=== PATIENT | female | born 1935 | race Caucasian/White ===

== ENCOUNTER 2018-04-03 20:08 | Observation (INO) ==
[2018-04-03] MEDS ORDERED: ONDANSETRON 4 MG/2 ML VIAL IV STA (21:10)
[2018-04-03] MEDS ORDERED: ASPIRIN 325 MG TABLET PO STA (21:10)
[2018-04-03] MEDS ORDERED: NITROGLYCERIN 2% OINT 1 INCH/GM PACK TOP STA (21:10)
[2018-04-03 22:26] LABS: Basophils # 0.1 10*3/uL (0.0-0.2); Basophils % 1.5 % (0.0-0.8); Eosinophils # 0.5 10*3/uL (0.0-0.87); Eosinophils % 5.1 % (0.00-10.9); Hematocrit 34.1 VOL% (35.7-47.0); Hemoglobin 11.5 GM/DL (12.0-16.0); Immature Granulocytes % 0.3 %; Immature Granulocytes Absolute 0.03 #; Lymphocytes # 3.5 10*3/uL (1.4-4.0); Lymphocytes % 37.7 % (21.3-54.2); Mean Corpuscular HGB Conc 33.7 GM/DL (32-36); Mean Corpuscular Hemoglobin 32 PG (27-34); Mean Corpuscular Volume 96.1 FL (87-102); Mean Platelet Volume 10.4 FL (9.6-12.0); Monocytes # 1.2 10*3/uL (0.11-0.8); Monocytes % 13.1 % (1.7-12.7); Neutrophils # 3.9 10*3/uL (1.4-7.4); Neutrophils % 42.3 % (38.7-73.9); Platelet Count 226 T/CUMM (130-400); Red Blood Count 3.55 MC/CUMM (3.8-5.5); Red Cell Distribution Width 12.7 % (9.3-17.3); White Blood Count 9.3 T/CUMM (4-12)
[2018-04-03] MEDS ORDERED: ASPIRIN CHEW 81 MG TABLET PO ONE (22:36)
[2018-04-03 22:43] LABS: Albumin 3.8 G/DL (3.4-5.0); Bilirubin,Total 0.4 MG/DL (0.2-1.0); Calcium 9.2 MG/DL (8.5-10.1); Osmolality,Calculated 291.8 MOS/KG (273-304); Potassium 3.6 MMOL/L (3.5-5.1); Total Protein 7.5 G/DL (6.4-8.3)
[2018-04-03 22:46] LABS: Eosinophils 7 % (0-10); Lymphocytes 33 % (20-55); Segmented Neutrophils 49 % (50-85); Total Cells Counted 100
[2018-04-03 22:47] LABS: Platelet Estimate Adequate
[2018-04-03] MEDS ORDERED: ASPIRIN CHEW 81 MG TABLET PO STA (22:48)
[2018-04-03] MEDS ORDERED: POTASSIUM CHLORIDE 20 MEQ TABLET PO PRN (23:52)
[2018-04-03] MEDS ORDERED: ONDANSETRON 4 MG/2 ML VIAL IV PRN (23:52)
[2018-04-04 01:10] LABS: INR 0.9; PT Patient Result 9.9 SECS
[2018-04-04] MEDS: SODIUM CHLORIDE 0.45% 1,000 ML IV SCH ×2 (01:35→14:15)
[2018-04-04] MEDS: NITROGLYCERIN 2% OINT 1 INCH/GM PACK TOP SCH ×4 (01:58→17:03)
[2018-04-04 02:43] LABS: Apearance,Urine CLEAR (Clear); Bilirubin,Urine Negative (Negative); Blood, Urine Negative (Negative); Glucose,Urine (UA) Negative (Negative); Hyaline Casts,Urine 10 /LPF (0-3); Ketones,Urine Negative (Negative); Mucus,Urine Occasional /LPF (Occasional); Nitrite,Urine Negative (Negative); Protein,Urine Negative; RBC,Urine 1 /HPF (0-4); Squamous Epithelial Cell,Urine Occasional /HPF (0-10); Urine Color Yellow (Yellow); Urine Specific Gravity 1.014 (1.001-1.035); Urine Urobilinogen < 2.0 EU/DL (0.2-1.0); WBC,Urine 1 /HPF (0-6)
[2018-04-04] MEDS ORDERED: ACETAMINOPHEN 325 MG TABLET PO PRN (05:03)
[2018-04-04] MEDS: LISINOPRIL 5 MG TABLET PO SCH (08:44)
[2018-04-04] MEDS: CLOPIDOGREL 75 MG TABLET PO SCH (08:44)
[2018-04-04] MEDS: MULTIVITAMIN (CENTRUM) TABLET PO SCH (08:44)
[2018-04-04] MEDS: METOPROLOL TARTRATE 50 MG TABLET PO SCH (08:44)
[2018-04-04] MEDS: AMIODARONE 200 MG TABLET PO SCH (08:44)
[2018-04-04] MEDS: ENOXAPARIN 30 MG/0.3 ML SYRINGE SUBCUT SCH (08:44)
[2018-04-04 08:54] LABS: Osmolality,Calculated 289.8 MOS/KG (273-304); Potassium 3.7 MMOL/L (3.5-5.1)
[2018-04-04] MEDS ORDERED: FUROSEMIDE 20 MG TABLET PO SCH (09:00)
[2018-04-04] MEDS ORDERED: ASPIRIN EC 81 MG TABLET PO SCH (09:00)
[2018-04-04] MEDS ORDERED: PANTOPRAZOLE 40 MG TABLET PO SCH (09:00)
[2018-04-04] MEDS ORDERED: FUROSEMIDE 40 MG/4 ML VIAL IV SCH (16:00)
[2018-04-04] MEDS ORDERED: MONTELUKAST 10 MG TABLET PO SCH (21:00)
[2018-04-04] MEDS ORDERED: DULoxetine 30 MG CAPSULE PO SCH (21:00)
[2018-04-05] MEDS: NITROGLYCERIN 2% OINT 1 INCH/GM PACK TOP SCH ×3 (00:52→12:30)
[2018-04-05 08:08] VITALS: BP 121/56
[2018-04-05] MEDS: MULTIVITAMIN (CENTRUM) TABLET PO SCH (08:16)
[2018-04-05] MEDS: LISINOPRIL 5 MG TABLET PO SCH (08:16)
[2018-04-05] MEDS: ENOXAPARIN 30 MG/0.3 ML SYRINGE SUBCUT SCH (08:16)
[2018-04-05] MEDS: AMIODARONE 200 MG TABLET PO SCH (08:16)
[2018-04-05] MEDS: METOPROLOL TARTRATE 50 MG TABLET PO SCH (08:17)
[2018-04-05] MEDS: CLOPIDOGREL 75 MG TABLET PO SCH (08:17)
[2018-04-05] MEDS ORDERED: PANTOPRAZOLE 40 MG TABLET PO SCH (09:00)
[2018-04-05] MEDS ORDERED: FUROSEMIDE 20 MG TABLET PO SCH (09:00)
[2018-04-05] MEDS ORDERED: CHOLECALCIFEROL 5,000 UNIT TABLET PO SCH (09:00)
[2018-04-05] MEDS ORDERED: ASPIRIN EC 81 MG TABLET PO SCH (09:00)
[2018-04-24] MEDS ORDERED: CYANOCOBALAMIN 1000 MCG/1 ML VIAL IM SCH (09:00)
== END 2018-04-05 12:58 | disposition home health service (06) ==
LOC: N.ED 20:08 → N.EDINP 20:08 → SUATTDRO 23:52 → N.TELES 04-04 00:13
PROVIDERS: ADMIT Family Medicine; ATTEND Internal Medicine

== ENCOUNTER 2019-03-04 10:02 | Inpatient (IN) ==
[2019-03-04 11:05] LABS: Basophils # 0.1 10*3/uL (0.0-0.2); Basophils % 0.9 % (0.0-0.8); Eosinophils # 0.1 10*3/uL (0.0-0.87); Eosinophils % 1.5 % (0.00-10.9); Hematocrit 37.8 VOL% (35.7-47.0); Hemoglobin 11.9 GM/DL (12.0-16.0); Immature Granulocytes % 0.3 %; Immature Granulocytes Absolute 0.03 #; Lymphocytes # 2.8 10*3/uL (1.4-4.0); Lymphocytes % 31.2 % (21.3-54.2); Mean Corpuscular HGB Conc 31.5 GM/DL (32-36); Mean Corpuscular Volume 99.7 FL (87-102); Monocytes % 12.7 % (1.7-12.7); Neutrophils % 53.4 % (38.7-73.9); Platelet Count 232 T/CUMM (130-400); Red Blood Count 3.79 MC/CUMM (3.8-5.5); White Blood Count 9.1 T/CUMM (4-12)
[2019-03-04 11:41] LABS: Apearance,Urine CLEAR (Clear); Bilirubin,Urine Negative (Negative); Blood, Urine Negative (Negative); Glucose,Urine (UA) Negative (Negative); Ketones,Urine Negative (Negative); Mucus,Urine Occasional /LPF (Occasional); Nitrite,Urine Negative (Negative); Protein,Urine Negative; RBC,Urine 1 /HPF (0-4); Squamous Epithelial Cell,Urine Occasional /HPF (0-10); Urine Color Yellow (Yellow); Urine Specific Gravity 1.019 (1.001-1.035); Urine Urobilinogen < 2.0 EU/DL (0.2-1.0); WBC,Urine <1 /HPF (0-6)
[2019-03-04 11:42] LABS: Albumin 3.7 G/DL (3.4-5.0); Bilirubin,Total 0.4 MG/DL (0.2-1.0); Calcium 9.2 MG/DL (8.5-10.1); Osmolality,Calculated 288.7 MOS/KG (273-304); Thyroid Stimulating Hormone 2.37 uIU/ml (0.358-3.74)
[2019-03-04] MEDS ORDERED: ACETAMINOPHEN 325 MG TABLET PO PRN (14:53)
[2019-03-04] MEDS ORDERED: CYANOCOBALAMIN 1000 MCG/1 ML VIAL IM SCH (15:00)
[2019-03-04] MEDS: ATORVASTATIN 10 MG TABLET PO SCH (21:27)
[2019-03-04] MEDS: MULTIVITAMIN (CENTRUM) TABLET PO SCH (21:27)
[2019-03-04] MEDS: DULoxetine 30 MG CAPSULE PO SCH (21:27)
[2019-03-05 05:40] LABS: Basophils # 0.1 10*3/uL (0.0-0.2); Basophils % 1.1 % (0.0-0.8); Eosinophils # 0.2 10*3/uL (0.0-0.87); Hematocrit 34.2 VOL% (35.7-47.0); Hemoglobin 11.3 GM/DL (12.0-16.0); Immature Granulocytes % 0.3 %; Immature Granulocytes Absolute 0.02 #; Lymphocytes # 2.9 10*3/uL (1.4-4.0); Mean Corpuscular Volume 99.4 FL (87-102); Mean Platelet Volume 10.2 FL (9.6-12.0); Neutrophils % 41.6 % (38.7-73.9); Platelet Count 212 T/CUMM (130-400); Red Blood Count 3.44 MC/CUMM (3.8-5.5); Red Cell Distribution Width 13.1 % (9.3-17.3); White Blood Count 7.1 T/CUMM (4-12)
[2019-03-05 06:14] LABS: Alanine Aminotransferase 16 U/L (13-56); Albumin 3.2 G/DL (3.4-5.0); Alkaline Phosphatase 62 U/L (45-117); Aspartate Amino Transferase 18 U/L (0-37); Bilirubin,Total < 0.39 MG/DL (0.2-1.0); Blood Urea Nitrogen 12 MG/DL (7-18); Calcium 9.2 MG/DL (8.5-10.1); Glucose 130 MG/DL (74-106); Osmolality,Calculated 289.7 MOS/KG (273-304); Total Protein 6.6 G/DL (6.4-8.3)
[2019-03-05] MEDS: PANTOPRAZOLE 40 MG TABLET PO SCH (09:27)
[2019-03-05] MEDS: CHOLECALCIFEROL 5,000 UNIT TABLET PO SCH (09:27)
[2019-03-05] MEDS: METOPROLOL TARTRATE 25 MG TABLET PO SCH (09:28)
[2019-03-05] MEDS: FUROSEMIDE 20 MG TABLET PO SCH (09:28)
[2019-03-05] MEDS: LISINOPRIL 10 MG TABLET PO SCH (09:28)
[2019-03-05] MEDS: ASPIRIN EC 81 MG TABLET PO SCH (09:28)
[2019-03-05] MEDS: CLOPIDOGREL 75 MG TABLET PO SCH (09:28)
[2019-03-05 09:36] LABS: Risk Ratio 4.03; VLDL CHOLESTEROL 35.6 MG/DL
[2019-03-05] MEDS ORDERED: POTASSIUM CHLORIDE 20 MEQ TABLET PO ONE (10:29)
[2019-03-05] MEDS: ASCORBIC ACID 500 MG TABLET PO SCH ×2 (12:03→21:38)
[2019-03-05] MEDS: ENOXAPARIN 40 MG/0.4 ML SYRINGE SUBCUT SCH (21:37)
[2019-03-05] MEDS: DULoxetine 30 MG CAPSULE PO SCH (21:38)
[2019-03-05] MEDS: MULTIVITAMIN (CENTRUM) TABLET PO SCH (21:38)
[2019-03-05] MEDS: ATORVASTATIN 10 MG TABLET PO SCH (21:38)
[2019-03-06 05:24] LABS: Basophils # 0.1 10*3/uL (0.0-0.2); Basophils % 1.4 % (0.0-0.8); Eosinophils # 0.2 10*3/uL (0.0-0.87); Eosinophils % 2.8 % (0.00-10.9); Hematocrit 34.9 VOL% (35.7-47.0); Immature Granulocytes % 0.3 %; Immature Granulocytes Absolute 0.02 #; Lymphocytes # 4.4 10*3/uL (1.4-4.0); Lymphocytes % 55.8 % (21.3-54.2); Mean Corpuscular HGB Conc 31.5 GM/DL (32-36); Mean Corpuscular Volume 101.2 FL (87-102); Mean Platelet Volume 10.3 FL (9.6-12.0); Monocytes % 10.7 % (1.7-12.7); Platelet Count 220 T/CUMM (130-400); Red Blood Count 3.45 MC/CUMM (3.8-5.5); Red Cell Distribution Width 12.9 % (9.3-17.3); White Blood Count 7.9 T/CUMM (4-12)
[2019-03-06 05:49] LABS: Osmolality,Calculated 288.7 MOS/KG (273-304)
[2019-03-06 05:53] LABS: Eosinophils 4 % (0-10); Lymphocytes 56 % (20-55); Platelet Estimate Adequate; Segmented Neutrophils 25 % (50-85); Total Cells Counted 100
[2019-03-06 05:54] LABS: Atypical Lymphocytes Few; Hypochromasia 1+
[2019-03-06] MEDS: FUROSEMIDE 20 MG TABLET PO SCH (08:19)
[2019-03-06] MEDS: CHOLECALCIFEROL 5,000 UNIT TABLET PO SCH (08:20)
[2019-03-06] MEDS: METOPROLOL TARTRATE 25 MG TABLET PO SCH ×2 (08:20→21:47)
[2019-03-06] MEDS: LISINOPRIL 10 MG TABLET PO SCH (08:21)
[2019-03-06] MEDS: ASCORBIC ACID 500 MG TABLET PO SCH ×2 (08:21→21:48)
[2019-03-06] MEDS: PANTOPRAZOLE 40 MG TABLET PO SCH (08:22)
[2019-03-06] MEDS: ASPIRIN EC 81 MG TABLET PO SCH (08:22)
[2019-03-06] MEDS: CLOPIDOGREL 75 MG TABLET PO SCH (08:22)
[2019-03-06] MEDS: POTASSIUM CHLORIDE 20 MEQ TABLET PO SCH (08:22)
[2019-03-06] MEDS: LISINOPRIL 20 MG TABLET PO SCH (12:58)
[2019-03-06] MEDS: MULTIVITAMIN (CENTRUM) TABLET PO SCH (21:47)
[2019-03-06] MEDS: DULoxetine 30 MG CAPSULE PO SCH (21:47)
[2019-03-06] MEDS: ATORVASTATIN 10 MG TABLET PO SCH (21:48)
[2019-03-06] MEDS: ENOXAPARIN 40 MG/0.4 ML SYRINGE SUBCUT SCH (21:49)
[2019-03-07 02:04] LABS: Basophils # 0.1 10*3/uL (0.0-0.2); Basophils % 1.1 % (0.0-0.8); Eosinophils # 0.2 10*3/uL (0.0-0.87); Eosinophils % 2.2 % (0.00-10.9); Hematocrit 34.4 VOL% (35.7-47.0); Hemoglobin 11.1 GM/DL (12.0-16.0); Immature Granulocytes % 0.2 %; Immature Granulocytes Absolute 0.02 #; Lymphocytes # 4.4 10*3/uL (1.4-4.0); Lymphocytes % 49.9 % (21.3-54.2); Mean Corpuscular HGB Conc 32.3 GM/DL (32-36); Mean Corpuscular Volume 99.1 FL (87-102); Mean Platelet Volume 9.7 FL (9.6-12.0); Monocytes % 11.2 % (1.7-12.7); Neutrophils % 35.4 % (38.7-73.9); Platelet Count 214 T/CUMM (130-400); Red Blood Count 3.47 MC/CUMM (3.8-5.5); Red Cell Distribution Width 12.9 % (9.3-17.3); White Blood Count 8.9 T/CUMM (4-12)
[2019-03-07 02:59] LABS: Band Neutrophils 2 % (0-10); Eosinophils 3 % (0-10); Lymphocytes 50 % (20-55); Platelet Estimate Normal; Segmented Neutrophils 34 % (50-85); Total Cells Counted 100
[2019-03-07 03:00] LABS: Anisocytosis Slight; Macrocytosis Slight
[2019-03-07] MEDS: METOPROLOL TARTRATE 25 MG TABLET PO SCH (09:21)
[2019-03-07] MEDS: FUROSEMIDE 20 MG TABLET PO SCH (09:21)
[2019-03-07] MEDS: CHOLECALCIFEROL 5,000 UNIT TABLET PO SCH (09:21)
[2019-03-07] MEDS: PANTOPRAZOLE 40 MG TABLET PO SCH (09:22)
[2019-03-07] MEDS: ASCORBIC ACID 500 MG TABLET PO SCH (09:22)
[2019-03-07] MEDS: LISINOPRIL 20 MG TABLET PO SCH (09:22)
[2019-03-07] MEDS: ASPIRIN EC 81 MG TABLET PO SCH (09:23)
[2019-03-07] MEDS: POTASSIUM CHLORIDE 20 MEQ TABLET PO SCH (09:23)
[2019-03-07] MEDS: CLOPIDOGREL 75 MG TABLET PO SCH (09:23)
[2019-03-07 15:56] VITALS: BP 148/67
== END 2019-03-07 15:59 | disposition home health service (06) | DRG 309 ==
LOC: N.EDINP 10:02 → N.ED 10:02 → SUATTDRO 14:53 → N.TELEN 16:59
PROVIDERS: ADMIT Internal Medicine; ATTEND Internal Medicine

== ENCOUNTER 2021-05-15 13:20 | Observation (INO) ==
[2021-05-15 13:42] LABS: Basophils # 0.1 10*3/uL (0.0-0.2); Basophils % 1.3 % (0.0-0.8); Eosinophils # 0.7 10*3/uL (0.0-0.87); Eosinophils % 7.5 % (0.00-10.9); Hematocrit 37.2 VOL% (35.7-47.0); Hemoglobin 12.1 GM/DL (12.0-16.0); Immature Granulocytes % 0.3 %; Immature Granulocytes Absolute 0.03 #; Lymphocytes # 3.5 10*3/uL (1.4-4.0); Lymphocytes % 35.3 % (21.3-54.2); Mean Corpuscular HGB Conc 32.5 GM/DL (32-36); Mean Corpuscular Volume 99.5 FL (87-102); Mean Platelet Volume 9.7 FL (9.6-12.0); Monocytes % 11.7 % (1.7-12.7); Neutrophils % 43.9 % (38.7-73.9); Platelet Count 226 T/CUMM (130-400); Red Blood Count 3.74 MC/CUMM (3.8-5.5); Red Cell Distribution Width 13.4 % (9.3-17.3); White Blood Count 9.9 T/CUMM (4-12)
[2021-05-15 13:53] LABS: INR 0.9; PT Patient Result 10.4 SECS (10.5-12.0); Partial Thromboplastin Time 23.5 SECS (23.9-33.8)
[2021-05-15] MEDS ORDERED: ENOXAPARIN 100 MG/ML SYRINGE SUBCUT STA (13:59)
[2021-05-15 14:12] LABS: Albumin 3.8 G/DL (3.4-5.0); Bilirubin,Total 0.8 MG/DL (0.20-1.00); Osmolality,Calculated 285.1 MOS/KG (273-304); Potassium 3.9 MMOL/L (3.5-5.1); Total Protein 7.1 G/DL (6.4-8.2)
[2021-05-15] MEDS ORDERED: DEXTROSE 50% 25 GM/50 ML VIAL IV PRN (15:18)
[2021-05-15] MEDS ORDERED: ACETAMINOPHEN 325 MG TABLET PO PRN (15:18)
[2021-05-15] MEDS ORDERED: LACTULOSE 20 GM/30 ML UDCUP PO PRN (15:18)
[2021-05-15] MEDS ORDERED: ALUMINUM/MAGNES/SIMETH MAX STR 30 ML UDCUP PO PRN (15:18)
[2021-05-15] MEDS ORDERED: ALBUTEROL 2.5 MG/3 ML NEB RESP TX PRN (15:18)
[2021-05-15] MEDS ORDERED: GLUCAGON 1 MG VIAL IM PRN (15:18)
[2021-05-15] MEDS ORDERED: SIMETHICONE CHEW 125 MG TABLET PO PRN (15:18)
[2021-05-15] MEDS ORDERED: ONDANSETRON 4 MG/2 ML VIAL IV PRN (15:18)
[2021-05-15] MEDS ORDERED: MORPHINE 2 MG/1 ML SYRINGE IV PRN (15:18)
[2021-05-15] MEDS ORDERED: NITROGLYCERIN SL 0.4 MG TABLET SL PRN (15:23)
[2021-05-15] MEDS: DOCUSATE SODIUM 100 MG CAPSULE PO SCH (21:25)
[2021-05-15 22:31] LABS: Bilirubin,Urine Negative (Negative); Blood, Urine Negative (Negative); Glucose,Urine (UA) Negative (Negative); Hyaline Casts,Urine 6 /LPF (0-3); Ketones,Urine Negative (Negative); Mucus,Urine Occasional /LPF (Occasional); Nitrite,Urine Negative (Negative); Protein,Urine Negative; Urine Appearance CLEAR (Clear); Urine Color Yellow (Yellow); Urine Specific Gravity 1.027 (1.001-1.035)
[2021-05-16] MEDS ORDERED: ENOXAPARIN 80 MG/0.8 ML SYRINGE SUBCUT SCH (02:00)
[2021-05-16 04:46] LABS: Basophils # 0.1 10*3/uL (0.0-0.2); Basophils % 1.4 % (0.0-0.8); Eosinophils # 0.7 10*3/uL (0.0-0.87); Eosinophils % 9.1 % (0.00-10.9); Hematocrit 35.6 VOL% (35.7-47.0); Hemoglobin 11.3 GM/DL (12.0-16.0); Immature Granulocytes % 0.1 %; Immature Granulocytes Absolute 0.01 #; Lymphocytes # 3.3 10*3/uL (1.4-4.0); Lymphocytes % 41.4 % (21.3-54.2); Mean Corpuscular HGB Conc 31.7 GM/DL (32-36); Mean Platelet Volume 9.8 FL (9.6-12.0); Monocytes % 13.1 % (1.7-12.7); Neutrophils % 34.9 % (38.7-73.9); Platelet Count 205 T/CUMM (130-400); Red Blood Count 3.49 MC/CUMM (3.8-5.5); Red Cell Distribution Width 13.6 % (9.3-17.3)
[2021-05-16 05:21] LABS: Eosinophils 8 % (0-10); Hypochromasia 1+; Lymphocytes 47 % (20-55); Microcytosis 1+; Platelet Estimate Adequate; Segmented Neutrophils 37 % (50-85); Total Cells Counted 100
[2021-05-16 05:21] LABS: Calcium 9.1 MG/DL (8.5-10.1); Osmolality,Calculated 283.1 MOS/KG (273-304); Potassium 3.7 MMOL/L (3.5-5.1); Risk Ratio 4.61; Thyroid Stimulating Hormone 2.28 uIU/ml (0.358-3.74); VLDL Cholesterol 52.6 MG/DL
[2021-05-16] MEDS ORDERED: ALUMINUM/MAGNES/SIMETH MAX STR 30 ML UDCUP PO ONE (08:58)
[2021-05-16] MEDS ORDERED: CHOLECALCIFEROL 400 UNIT TABLET PO SCH (09:00)
[2021-05-16] MEDS: DOCUSATE SODIUM 100 MG CAPSULE PO SCH ×2 (09:22→20:33)
[2021-05-16] MEDS: DILTIAZEM CD 180 MG CAPSULE PO SCH (09:22)
[2021-05-16] MEDS: cilostazoL 50 MG TABLET PO SCH ×2 (09:23→20:33)
[2021-05-16] MEDS: PANTOPRAZOLE 40 MG TABLET PO SCH (09:23)
[2021-05-16] MEDS: ISOSORBIDE MONONITRATE 30 MG TABLET PO SCH (09:23)
[2021-05-16] MEDS: ASPIRIN EC 81 MG TABLET PO SCH (09:24)
[2021-05-16] MEDS: METOPROLOL TARTRATE 50 MG TABLET PO SCH ×2 (09:24→20:33)
[2021-05-16] MEDS: CHOLECALCIFEROL 400 UNIT TABLET PO SCH (09:25)
[2021-05-16] MEDS: RANOLAZINE 500 MG TABLET PO SCH ×2 (10:23→20:33)
[2021-05-16] MEDS: CYANOCOBALAMIN 500 MCG TABLET PO SCH (10:23)
[2021-05-16] MEDS ORDERED: ATORVASTATIN 10 MG TABLET PO SCH (21:00)
[2021-05-16] MEDS ORDERED: DULoxetine 30 MG CAPSULE PO SCH (21:00)
[2021-05-17] MEDS: RANOLAZINE 500 MG TABLET PO SCH (08:00)
[2021-05-17] MEDS: DILTIAZEM CD 180 MG CAPSULE PO SCH (08:00)
[2021-05-17] MEDS: DOCUSATE SODIUM 100 MG CAPSULE PO SCH (08:00)
[2021-05-17] MEDS: METOPROLOL TARTRATE 50 MG TABLET PO SCH (08:01)
[2021-05-17] MEDS: cilostazoL 50 MG TABLET PO SCH (08:01)
[2021-05-17] MEDS: ASPIRIN EC 81 MG TABLET PO SCH (08:01)
[2021-05-17] MEDS: ISOSORBIDE MONONITRATE 30 MG TABLET PO SCH (08:01)
[2021-05-17] MEDS: PANTOPRAZOLE 40 MG TABLET PO SCH (08:01)
[2021-05-17] MEDS: CYANOCOBALAMIN 500 MCG TABLET PO SCH (08:01)
[2021-05-17] MEDS: CHOLECALCIFEROL 400 UNIT TABLET PO SCH (08:01)
[2021-05-17 08:20] VITALS: BP 109/64
[2021-05-17 08:35] LABS: Basophils # 0.1 10*3/uL (0.0-0.2); Basophils % 1.1 % (0.0-0.8); Eosinophils # 0.5 10*3/uL (0.0-0.87); Eosinophils % 6.4 % (0.00-10.9); Hematocrit 38.3 VOL% (35.7-47.0); Hemoglobin 12.3 GM/DL (12.0-16.0); Immature Granulocytes % 0.3 %; Immature Granulocytes Absolute 0.02 #; Lymphocytes % 41.2 % (21.3-54.2); Mean Corpuscular HGB Conc 32.1 GM/DL (32-36); Mean Corpuscular Volume 101.3 FL (87-102); Mean Platelet Volume 9.3 FL (9.6-12.0); Monocytes % 10.9 % (1.7-12.7); Neutrophils % 40.1 % (38.7-73.9); Platelet Count 229 T/CUMM (130-400); Red Blood Count 3.78 MC/CUMM (3.8-5.5); Red Cell Distribution Width 13.5 % (9.3-17.3); White Blood Count 7.2 T/CUMM (4-12)
[2021-05-17 08:52] LABS: Calcium 9.5 MG/DL (8.5-10.1); Osmolality,Calculated 277.7 MOS/KG (273-304); Potassium 4.2 MMOL/L (3.5-5.1)
[2021-05-17] MEDS ORDERED: ATORVASTATIN 80 MG TABLET PO SCH (21:00)
== END 2021-05-17 11:20 | disposition home or self-care (01) ==
LOC: N.ED 13:20 → N.EDINP 13:20 → N.TELES 17:10
PROVIDERS: ADMIT Internal Medicine; ATTEND Internal Medicine

== ENCOUNTER 2021-06-28 04:53 | Inpatient (IN) ==
[2021-06-28] MEDS ORDERED: NITROGLYCERIN SL 0.4 MG TABLET SL ONE (05:07)
[2021-06-28] MEDS ORDERED: ASPIRIN 325 MG TABLET ONE (05:07)
[2021-06-28] MEDS ORDERED: TICAGRELOR 90 MG TABLET PO STA (05:08)
[2021-06-28] MEDS ORDERED: HEPARIN 1,000 UNIT/1 ML VIAL IV STA (05:11)
[2021-06-28] MEDS ORDERED: ASPIRIN 325 MG TABLET PO STA (05:11)
[2021-06-28] MEDS ORDERED: ONDANSETRON 4 MG/2 ML VIAL IV ONE (05:13)
[2021-06-28] MEDS ORDERED: NITROGLYCERIN SL 0.4 MG TABLET SL STA (05:13)
[2021-06-28] MEDS ORDERED: MORPHINE 2 MG/1 ML SYRINGE IV STA (05:13)
[2021-06-28] MEDS ORDERED: HEPARIN 5,000 UNIT/1 ML VIAL ONE ×2 (05:20→06:05)
[2021-06-28 05:23] LABS: Basophils # 0.1 10*3/uL (0.0-0.2); Basophils % 0.8 % (0.0-0.8); Eosinophils # 0.3 10*3/uL (0.0-0.87); Eosinophils % 2.5 % (0.00-10.9); Hematocrit 36.1 VOL% (35.7-47.0); Hemoglobin 11.8 GM/DL (12.0-16.0); Immature Granulocytes % 0.3 %; Immature Granulocytes Absolute 0.03 #; Lymphocytes # 3.4 10*3/uL (1.4-4.0); Lymphocytes % 29.8 % (21.3-54.2); Mean Corpuscular HGB Conc 32.7 GM/DL (32-36); Mean Corpuscular Volume 99.2 FL (87-102); Mean Platelet Volume 9.6 FL (9.6-12.0); Monocytes % 9.7 % (1.7-12.7); Neutrophils % 56.9 % (38.7-73.9); Platelet Count 244 T/CUMM (130-400); Red Blood Count 3.64 MC/CUMM (3.8-5.5); Red Cell Distribution Width 13.2 % (9.3-17.3); White Blood Count 11.5 T/CUMM (4-12)
[2021-06-28] MEDS ORDERED: HEPARIN DRIP 25,000 UNITS/500 ML PREMIX IV SCH (05:30)
[2021-06-28 05:32] LABS: INR 0.9; PT Patient Result 10.6 SECS (10.5-12.0); Partial Thromboplastin Time 25.4 SECS (23.9-33.8)
[2021-06-28 05:37] LABS: Albumin 3.8 G/DL (3.4-5.0); Bilirubin,Total 0.5 MG/DL (0.20-1.00); Calcium 9.2 MG/DL (8.5-10.1); Osmolality,Calculated 275.8 MOS/KG (273-304); Potassium 3.8 MMOL/L (3.5-5.1); Total Protein 7.9 G/DL (6.4-8.2)
[2021-06-28] MEDS ORDERED: LIDOCAINE 1% 20 ML VIAL ONE (05:44)
[2021-06-28] MEDS ORDERED: MIDAZOLAM 2 MG/2 ML VIAL ONE (05:44)
[2021-06-28] MEDS ORDERED: HYDROmorphone 2 MG/1 ML VIAL ONE (05:44)
[2021-06-28] MEDS ORDERED: LABETALOL 20 MG/4 ML SYRINGE IV ONE (06:32)
[2021-06-28] MEDS ORDERED: NITROGLYCERIN DRIP 50 MG/250 ML BOTTLE IV ONE (06:46)
[2021-06-28] MEDS ORDERED: TIROFIBAN 5,000 MCG/100 ML PREMIX IV ONE (06:52)
[2021-06-28] MEDS ORDERED: ONDANSETRON 4 MG/2 ML VIAL ONE (07:00)
[2021-06-28] MEDS ORDERED: NITROPRUSSIDE 50 MG/2 ML VIAL ONE (07:06)
[2021-06-28] MEDS ORDERED: TIROFIBAN 5,000 MCG/100 ML PREMIX IV SCH (08:00)
[2021-06-28] MEDS ORDERED: FUROSEMIDE 40 MG/4 ML VIAL ONE (08:34)
[2021-06-28] MEDS ORDERED: FUROSEMIDE 40 MG/4 ML VIAL IV ONE ×2 (08:57→16:00)
[2021-06-28 09:55] LABS: CKMB % 9.8 %
[2021-06-28 09:57] LABS: High Sensitive Troponin I* 11969.2 ng/L (0-54)
[2021-06-28 11:09] LABS: Bilirubin,Urine Negative (Negative); Blood, Urine Negative (Negative); Glucose,Urine (UA) Negative (Negative); Ketones,Urine Negative (Negative); Nitrite,Urine Negative (Negative); Protein,Urine Negative; RBC,Urine 6 /HPF (0-4); Squamous Epithelial Cell,Urine Occasional /HPF (0-10); Urine Appearance CLEAR (Clear); Urine Color Yellow (Yellow); Urine Specific Gravity 1.058 (1.001-1.035)
[2021-06-28] MEDS ORDERED: NITROGLYCERIN SL 0.4 MG TABLET SL PRN (12:14)
[2021-06-28] MEDS ORDERED: diphenhydrAMINE CAP 25 MG CAPSULE PO PRN (12:26)
[2021-06-28] MEDS ORDERED: MAGNESIUM HYDROXIDE SUSP 30 ML UDCUP PO PRN (12:26)
[2021-06-28] MEDS: MORPHINE 2 MG/1 ML SYRINGE IV PRN (15:43)
[2021-06-28] MEDS: NITROGLYCERIN 2% OINT 1 INCH/GM PACK TOP SCH (17:50)
[2021-06-28] MEDS: ASCORBIC ACID 500 MG TABLET PO SCH (20:22)
[2021-06-28] MEDS: ATORVASTATIN 80 MG TABLET PO SCH (20:22)
[2021-06-28] MEDS: DULoxetine 30 MG CAPSULE PO SCH (20:23)
[2021-06-28] MEDS: TICAGRELOR 90 MG TABLET PO SCH (20:45)
[2021-06-28] MEDS ORDERED: DILTIAZEM CD 120 MG CAPSULE PO SCH (21:00)
[2021-06-28] MEDS ORDERED: METOPROLOL TARTRATE 50 MG TABLET PO SCH (21:00)
[2021-06-28] MEDS ORDERED: cilostazoL 50 MG TABLET PO SCH (21:00)
[2021-06-28] MEDS: METOPROLOL TARTRATE 25 MG TABLET PO SCH (22:11)
[2021-06-29] MEDS: NITROGLYCERIN 2% OINT 1 INCH/GM PACK TOP SCH ×5 (00:20→23:27)
[2021-06-29] MEDS: MORPHINE 2 MG/1 ML SYRINGE IV PRN (00:55)
[2021-06-29 06:38] LABS: Basophils # 0.1 10*3/uL (0.0-0.2); Basophils % 0.4 % (0.0-0.8); Eosinophils % 0.1 % (0.00-10.9); Hematocrit 31.3 VOL% (35.7-47.0); Hemoglobin 10.3 GM/DL (12.0-16.0); Immature Granulocytes % 0.4 %; Immature Granulocytes Absolute 0.07 #; Lymphocytes # 2.4 10*3/uL (1.4-4.0); Lymphocytes % 13.9 % (21.3-54.2); Mean Corpuscular HGB Conc 32.9 GM/DL (32-36); Mean Corpuscular Volume 99.4 FL (87-102); Mean Platelet Volume 9.7 FL (9.6-12.0); Monocytes % 13.5 % (1.7-12.7); Neutrophils % 71.7 % (38.7-73.9); Platelet Count 234 T/CUMM (130-400); Red Blood Count 3.15 MC/CUMM (3.8-5.5); Red Cell Distribution Width 13.7 % (9.3-17.3)
[2021-06-29 07:18] LABS: Potassium 3.9 MMOL/L (3.5-5.1); Risk Ratio 3.04; Thyroid Stimulating Hormone 1.13 uIU/ml (0.358-3.74); VLDL Cholesterol 29.4 MG/DL
[2021-06-29] MEDS ORDERED: MAGNESIUM SULF RIDER 2 GM/50 ML PREMIX IV PRN (07:21)
[2021-06-29] MEDS ORDERED: MAGNESIUM SULF RIDER 4 GM/100 ML PREMIX IV PRN (07:21)
[2021-06-29 07:29] LABS: CKMB % 7.7 %
[2021-06-29 08:08] LABS: High Sensitive Troponin I* 73598.2 ng/L (0-54)
[2021-06-29] MEDS: TICAGRELOR 90 MG TABLET PO SCH ×2 (08:13→21:30)
[2021-06-29] MEDS: METOPROLOL TARTRATE 25 MG TABLET PO SCH (08:13)
[2021-06-29] MEDS: ASCORBIC ACID 500 MG TABLET PO SCH ×2 (08:13→21:30)
[2021-06-29] MEDS: ISOSORBIDE MONONITRATE 30 MG TABLET PO SCH (08:13)
[2021-06-29] MEDS: ASPIRIN EC 81 MG TABLET PO SCH (08:13)
[2021-06-29] MEDS: MULTIVITAMIN (CENTRUM) TABLET PO SCH (08:13)
[2021-06-29] MEDS ORDERED: DILTIAZEM CD 180 MG CAPSULE PO SCH (09:00)
[2021-06-29] MEDS ORDERED: FUROSEMIDE 40 MG/4 ML VIAL IV ONE ×3 (09:20→16:14)
[2021-06-29] MEDS ORDERED: POTASSIUM CHLORIDE 20 MEQ TABLET PO ONE (09:57)
[2021-06-29] MEDS: ENOXAPARIN 40 MG/0.4 ML SYRINGE SUBCUT SCH (10:47)
[2021-06-29] MEDS ORDERED: AMIODARONE 450 MG/9 ML VIAL IV ONE (11:27)
[2021-06-29] MEDS ORDERED: AMIODARONE 150 MG/3 ML VIAL ONE (11:28)
[2021-06-29] MEDS ORDERED: AMIODARONE INJ 150 MG in DEXTROSE 5% 100 ML IV ONE (11:30)
[2021-06-29] MEDS ORDERED: MIDAZOLAM 10 MG/2 ML VIAL ONE (11:31)
[2021-06-29] MEDS ORDERED: HYDROmorphone 2 MG/1 ML VIAL IV ONE (11:40)
[2021-06-29] MEDS ORDERED: MIDAZOLAM 2 MG/2 ML VIAL IV ONE (11:40)
[2021-06-29] MEDS: AMIODARONE INJ 450 MG in DEXTROSE 5% 241 ML IV SCH (11:44)
[2021-06-29 12:50] LABS: Allen Test Positive
[2021-06-29 12:51] LABS: ABG Base Excess -5.7 MMOL/L (-2.5-2.5); ABG HCO3 19.6 MMOL/L (20-26); ABG Oxygen Saturation 89.1 % (95-100); ABG PCO2 32.9 MM HG (35-48); ABG PH 7.367 (7.35-7.45); ABG PO2 62.4 MM HG (80-95); ABG TCO2 17.4 MMOL/L (23-27)
[2021-06-29] MEDS: FUROSEMIDE 40 MG TABLET PO SCH (16:14)
[2021-06-29] MEDS ORDERED: METOPROLOL TARTRATE 25 MG TABLET PO SCH (21:00)
[2021-06-29] MEDS: ATORVASTATIN 80 MG TABLET PO SCH (21:30)
[2021-06-29] MEDS: DULoxetine 30 MG CAPSULE PO SCH (21:30)
[2021-06-30] MEDS: AMIODARONE INJ 450 MG in DEXTROSE 5% 241 ML IV SCH (02:55)
[2021-06-30 05:15] LABS: Basophils # 0.1 10*3/uL (0.0-0.2); Basophils % 0.6 % (0.0-0.8); Eosinophils # 0.2 10*3/uL (0.0-0.87); Eosinophils % 1.2 % (0.00-10.9); Hematocrit 28.8 VOL% (35.7-47.0); Hemoglobin 9.5 GM/DL (12.0-16.0); Immature Granulocytes % 0.4 %; Immature Granulocytes Absolute 0.06 #; Lymphocytes # 2.8 10*3/uL (1.4-4.0); Lymphocytes % 19.1 % (21.3-54.2); Mean Platelet Volume 10.1 FL (9.6-12.0); Monocytes % 14.8 % (1.7-12.7); Neutrophils % 63.9 % (38.7-73.9); Platelet Count 216 T/CUMM (130-400); Red Blood Count 2.91 MC/CUMM (3.8-5.5); Red Cell Distribution Width 13.5 % (9.3-17.3); White Blood Count 14.6 T/CUMM (4-12)
[2021-06-30 05:52] LABS: Calcium 8.7 MG/DL (8.5-10.1); Potassium 3.4 MMOL/L (3.5-5.1)
[2021-06-30] MEDS: NITROGLYCERIN 2% OINT 1 INCH/GM PACK TOP SCH ×2 (06:24→14:24)
[2021-06-30 07:17] LABS: Albumin 3.1 G/DL (3.4-5.0); Bilirubin,Total 1.2 MG/DL (0.20-1.00); CKMB % 3.6 %; Calcium 8.9 MG/DL (8.5-10.1); High Sensitive Troponin I* 64710.8 ng/L (0-54); Osmolality,Calculated 273.1 MOS/KG (273-304); Potassium 3.3 MMOL/L (3.5-5.1); Total Protein 7.1 G/DL (6.4-8.2)
[2021-06-30] MEDS: ASCORBIC ACID 500 MG TABLET PO SCH ×2 (09:40→20:11)
[2021-06-30] MEDS: FUROSEMIDE 40 MG TABLET PO SCH ×2 (09:40→16:45)
[2021-06-30] MEDS: METOPROLOL TARTRATE 25 MG TABLET PO SCH ×2 (09:40→20:11)
[2021-06-30] MEDS: TICAGRELOR 90 MG TABLET PO SCH ×2 (09:40→20:12)
[2021-06-30] MEDS: ISOSORBIDE MONONITRATE 30 MG TABLET PO SCH (09:40)
[2021-06-30] MEDS: MULTIVITAMIN (CENTRUM) TABLET PO SCH (09:40)
[2021-06-30] MEDS: POTASSIUM CHLORIDE 20 MEQ TABLET PO PRN ×2 (09:40→14:08)
[2021-06-30] MEDS: ASPIRIN EC 81 MG TABLET PO SCH (09:44)
[2021-06-30] MEDS: ENOXAPARIN 40 MG/0.4 ML SYRINGE SUBCUT SCH (10:00)
[2021-06-30] MEDS: AMIODARONE 200 MG TABLET PO SCH ×2 (14:08→20:11)
[2021-06-30] MEDS: ATORVASTATIN 80 MG TABLET PO SCH (20:11)
[2021-06-30] MEDS: DULoxetine 30 MG CAPSULE PO SCH (20:12)
[2021-07-01 05:29] LABS: Basophils # 0.1 10*3/uL (0.0-0.2); Basophils % 0.4 % (0.0-0.8); Eosinophils # 0.4 10*3/uL (0.0-0.87); Eosinophils % 2.8 % (0.00-10.9); Hematocrit 29.5 VOL% (35.7-47.0); Hemoglobin 9.4 GM/DL (12.0-16.0); Immature Granulocytes % 0.5 %; Immature Granulocytes Absolute 0.07 #; Lymphocytes % 22.1 % (21.3-54.2); Mean Corpuscular HGB Conc 31.9 GM/DL (32-36); Mean Corpuscular Volume 101.4 FL (87-102); Monocytes % 13.5 % (1.7-12.7); Neutrophils % 60.7 % (38.7-73.9); Platelet Count 238 T/CUMM (130-400); Red Blood Count 2.91 MC/CUMM (3.8-5.5); Red Cell Distribution Width 13.8 % (9.3-17.3); White Blood Count 13.4 T/CUMM (4-12)
[2021-07-01 05:58] LABS: Eosinophils 5 % (0-10); Lymphocytes 18 % (20-55); Segmented Neutrophils 68 % (50-85); Total Cells Counted 100
[2021-07-01 05:59] LABS: Hypochromasia 1+; Microcytosis 1+; Ovalocytes Slight; Platelet Estimate Adequate
[2021-07-01 06:09] LABS: Albumin 3.1 G/DL (3.4-5.0); Bilirubin,Direct 0.28 MG/DL (0.0-0.20); Bilirubin,Indirect 1.5 MG/DL (0.0-1.0); Bilirubin,Total 1.8 MG/DL (0.20-1.00); Calcium 9.1 MG/DL (8.5-10.1); Total Protein 7.6 G/DL (6.4-8.2)
[2021-07-01] MEDS: ISOSORBIDE MONONITRATE 30 MG TABLET PO SCH (08:51)
[2021-07-01] MEDS: METOPROLOL TARTRATE 25 MG TABLET PO SCH ×2 (08:51→20:32)
[2021-07-01] MEDS: TICAGRELOR 90 MG TABLET PO SCH ×2 (08:51→20:32)
[2021-07-01] MEDS: AMIODARONE 200 MG TABLET PO SCH ×2 (08:51→20:32)
[2021-07-01] MEDS: ASPIRIN EC 81 MG TABLET PO SCH (08:51)
[2021-07-01] MEDS: MULTIVITAMIN (CENTRUM) TABLET PO SCH (08:51)
[2021-07-01] MEDS: ASCORBIC ACID 500 MG TABLET PO SCH ×2 (08:51→20:32)
[2021-07-01] MEDS: ENOXAPARIN 40 MG/0.4 ML SYRINGE SUBCUT SCH (11:26)
[2021-07-01] MEDS: ALBUTEROL/IPRATROPIUM 3 ML NEB RESP TX SCH ×2 (14:59→18:02)
[2021-07-01] MEDS: ATORVASTATIN 80 MG TABLET PO SCH (20:32)
[2021-07-01] MEDS: DULoxetine 30 MG CAPSULE PO SCH (20:32)
[2021-07-02] MEDS: ALBUTEROL/IPRATROPIUM 3 ML NEB RESP TX SCH ×4 (00:22→19:20)
[2021-07-02 06:40] LABS: Basophils # 0.1 10*3/uL (0.0-0.2); Basophils % 0.5 % (0.0-0.8); Eosinophils # 0.5 10*3/uL (0.0-0.87); Eosinophils % 3.8 % (0.00-10.9); Hematocrit 28.7 VOL% (35.7-47.0); Hemoglobin 9.3 GM/DL (12.0-16.0); Immature Granulocytes % 0.5 %; Immature Granulocytes Absolute 0.06 #; Lymphocytes # 2.3 10*3/uL (1.4-4.0); Lymphocytes % 17.7 % (21.3-54.2); Mean Corpuscular HGB Conc 32.4 GM/DL (32-36); Mean Corpuscular Volume 102.9 FL (87-102); Mean Platelet Volume 9.9 FL (9.6-12.0); Monocytes % 15.2 % (1.7-12.7); Neutrophils % 62.3 % (38.7-73.9); Platelet Count 259 T/CUMM (130-400); Red Blood Count 2.79 MC/CUMM (3.8-5.5); Red Cell Distribution Width 13.6 % (9.3-17.3)
[2021-07-02 07:16] LABS: Calcium 9.3 MG/DL (8.5-10.1); Osmolality,Calculated 277.4 MOS/KG (273-304); Potassium 4.1 MMOL/L (3.5-5.1)
[2021-07-02] MEDS ORDERED: FUROSEMIDE 40 MG/4 ML VIAL IV ONE (07:44)
[2021-07-02] MEDS: LEVOFLOXACIN INJ 500 MG/100 ML PREMIX IV SCH (09:07)
[2021-07-02] MEDS: TICAGRELOR 90 MG TABLET PO SCH ×2 (09:07→20:15)
[2021-07-02] MEDS: AMIODARONE 200 MG TABLET PO SCH ×2 (09:07→20:15)
[2021-07-02] MEDS: ASCORBIC ACID 500 MG TABLET PO SCH ×2 (09:07→20:14)
[2021-07-02] MEDS: MULTIVITAMIN (CENTRUM) TABLET PO SCH (09:07)
[2021-07-02] MEDS: ASPIRIN EC 81 MG TABLET PO SCH (09:07)
[2021-07-02] MEDS: METOPROLOL TARTRATE 25 MG TABLET PO SCH ×2 (09:08→20:15)
[2021-07-02] MEDS: ATORVASTATIN 80 MG TABLET PO SCH (20:14)
[2021-07-02] MEDS: DULoxetine 30 MG CAPSULE PO SCH (20:15)
[2021-07-03] MEDS: ALBUTEROL/IPRATROPIUM 3 ML NEB RESP TX SCH ×4 (00:25→19:28)
[2021-07-03 05:56] LABS: Basophils # 0.1 10*3/uL (0.0-0.2); Basophils % 0.5 % (0.0-0.8); Eosinophils # 0.4 10*3/uL (0.0-0.87); Eosinophils % 3.7 % (0.00-10.9); Hematocrit 29.7 VOL% (35.7-47.0); Hemoglobin 9.4 GM/DL (12.0-16.0); Immature Granulocytes % 0.5 %; Immature Granulocytes Absolute 0.05 #; Lymphocytes # 2.1 10*3/uL (1.4-4.0); Lymphocytes % 18.8 % (21.3-54.2); Mean Corpuscular HGB Conc 31.6 GM/DL (32-36); Mean Corpuscular Volume 102.4 FL (87-102); Mean Platelet Volume 9.9 FL (9.6-12.0); Monocytes % 15.9 % (1.7-12.7); Neutrophils % 60.6 % (38.7-73.9); Platelet Count 268 T/CUMM (130-400); Red Cell Distribution Width 13.6 % (9.3-17.3); White Blood Count 10.9 T/CUMM (4-12)
[2021-07-03 06:15] LABS: Calcium 9.1 MG/DL (8.5-10.1); Osmolality,Calculated 283.1 MOS/KG (273-304); Potassium 3.8 MMOL/L (3.5-5.1)
[2021-07-03 06:28] LABS: Eosinophils 4 % (0-10); Lymphocytes 23 % (20-55); Platelet Estimate Adequate; Segmented Neutrophils 56 % (50-85); Total Cells Counted 100
[2021-07-03 06:29] LABS: Hypochromasia 1+; Microcytosis 1+
[2021-07-03] MEDS: LEVOFLOXACIN INJ 500 MG/100 ML PREMIX IV SCH (08:08)
[2021-07-03] MEDS: ASCORBIC ACID 500 MG TABLET PO SCH ×2 (08:09→20:32)
[2021-07-03] MEDS: AMIODARONE 200 MG TABLET PO SCH ×2 (08:09→20:34)
[2021-07-03] MEDS: ASPIRIN EC 81 MG TABLET PO SCH (08:09)
[2021-07-03] MEDS: TICAGRELOR 90 MG TABLET PO SCH ×2 (08:09→20:33)
[2021-07-03] MEDS: MULTIVITAMIN (CENTRUM) TABLET PO SCH (08:09)
[2021-07-03] MEDS: METOPROLOL TARTRATE 25 MG TABLET PO SCH ×2 (08:10→20:31)
[2021-07-03] MEDS ORDERED: FUROSEMIDE 40 MG/4 ML VIAL IV SCH ×2 (08:25→09:00)
[2021-07-03] MEDS ORDERED: FUROSEMIDE 40 MG/4 ML VIAL IV ONE (08:34)
[2021-07-03] MEDS ORDERED: ALUMINUM/MAGNES/SIMETH MAX STR 30 ML UDCUP PO PRN (09:33)
[2021-07-03] MEDS: FUROSEMIDE 40 MG TABLET PO SCH (16:47)
[2021-07-03] MEDS: DULoxetine 30 MG CAPSULE PO SCH (20:32)
[2021-07-03] MEDS: ATORVASTATIN 80 MG TABLET PO SCH (20:32)
[2021-07-03] MEDS ORDERED: ACETAMINOPHEN 325 MG TABLET PO PRN (21:41)
[2021-07-04] MEDS: ALBUTEROL/IPRATROPIUM 3 ML NEB RESP TX SCH ×2 (01:37→07:23)
[2021-07-04 05:46] LABS: Basophils # 0.1 10*3/uL (0.0-0.2); Basophils % 0.6 % (0.0-0.8); Eosinophils # 0.6 10*3/uL (0.0-0.87); Eosinophils % 5.3 % (0.00-10.9); Hematocrit 28.7 VOL% (35.7-47.0); Hemoglobin 9.3 GM/DL (12.0-16.0); Immature Granulocytes % 0.5 %; Immature Granulocytes Absolute 0.06 #; Lymphocytes # 2.5 10*3/uL (1.4-4.0); Lymphocytes % 20.9 % (21.3-54.2); Mean Corpuscular HGB Conc 32.4 GM/DL (32-36); Mean Corpuscular Volume 102.1 FL (87-102); Mean Platelet Volume 9.9 FL (9.6-12.0); Monocytes % 16.4 % (1.7-12.7); Neutrophils % 56.3 % (38.7-73.9); Platelet Count 292 T/CUMM (130-400); Red Blood Count 2.81 MC/CUMM (3.8-5.5); Red Cell Distribution Width 13.6 % (9.3-17.3); White Blood Count 12.1 T/CUMM (4-12)
[2021-07-04 06:29] LABS: Eosinophils 4 % (0-10); Hypochromasia 1+; Lymphocytes 17 % (20-55); Microcytosis 1+; Platelet Estimate Adequate; Segmented Neutrophils 68 % (50-85); Total Cells Counted 100
[2021-07-04 06:40] LABS: Calcium 8.8 MG/DL (8.5-10.1); Osmolality,Calculated 279.2 MOS/KG (273-304); Potassium 4.1 MMOL/L (3.5-5.1)
[2021-07-04] MEDS ORDERED: SPIRONOLACTONE 25 MG TABLET PO SCH (09:00)
[2021-07-04] MEDS ORDERED: METOPROLOL SUCCINATE XL 25 MG TABLET PO SCH (09:00)
[2021-07-04] MEDS ORDERED: AMIODARONE 200 MG TABLET PO SCH (09:00)
[2021-07-04] MEDS: LEVOFLOXACIN INJ 500 MG/100 ML PREMIX IV SCH (09:16)
[2021-07-04] MEDS: TICAGRELOR 90 MG TABLET PO SCH (09:17)
[2021-07-04] MEDS: FUROSEMIDE 40 MG TABLET PO SCH (09:18)
[2021-07-04] MEDS: ASPIRIN EC 81 MG TABLET PO SCH (09:18)
[2021-07-04] MEDS: MULTIVITAMIN (CENTRUM) TABLET PO SCH (09:18)
[2021-07-04] MEDS: ASCORBIC ACID 500 MG TABLET PO SCH (09:19)
[2021-07-04 12:19] VITALS: BP 122/58
== END 2021-07-04 12:08 | disposition swing bed (61) | DRG 246 ==
LOC: N.ED 04:53 → N.EDINP 05:44 → N.ICU 08:11 → N.TELEN 07-03 20:09
PROVIDERS: ADMIT Internal Medicine Cardiovascular Disease; ATTEND Internal Medicine Interventional Cardiology
PROC: CLCCHCL (ICD-10-PCS; 2021-06-28 06:15)

== ENCOUNTER 2022-01-14 14:34 | Inpatient (IN) ==
[2022-01-14] MEDS ORDERED: ASPIRIN 325 MG TABLET PO STA (15:59)
[2022-01-14 16:12] LABS: Basophils # 0.1 10*3/uL (0.0-0.2); Basophils % 1.2 % (0.0-0.8); Eosinophils # 0.2 10*3/uL (0.0-0.87); Hematocrit 28.5 VOL% (35.7-47.0); Immature Granulocytes % 0.6 %; Immature Granulocytes Absolute 0.05 #; Lymphocytes # 2.2 10*3/uL (1.4-4.0); Lymphocytes % 23.8 % (21.3-54.2); Mean Corpuscular HGB Conc 31.6 GM/DL (32-36); Mean Corpuscular Volume 102.2 FL (87-102); Mean Platelet Volume 8.7 FL (9.6-12.0); Monocytes % 10.5 % (1.7-12.7); Neutrophils % 61.9 % (38.7-73.9); Platelet Count 352 T/CUMM (130-400); Red Blood Count 2.79 MC/CUMM (3.8-5.5); White Blood Count 9.1 T/CUMM (4-12)
[2022-01-14 16:47] LABS: Albumin 2.8 G/DL (3.4-5.0); Bilirubin,Total 0.4 MG/DL (0.20-1.00); Calcium 8.8 MG/DL (8.5-10.1); Osmolality,Calculated 276.7 MOS/KG (273-304); Potassium 3.6 MMOL/L (3.5-5.1); Total Protein 7.2 G/DL (6.4-8.2)
[2022-01-14] MEDS ORDERED: ALBUTEROL 2.5 MG/3 ML NEB RESP TX PRN (17:43)
[2022-01-14] MEDS ORDERED: ACETAMINOPHEN 325 MG TABLET PO PRN (17:43)
[2022-01-14] MEDS ORDERED: DOCUSATE SODIUM 100 MG CAPSULE PO PRN (17:43)
[2022-01-14] MEDS ORDERED: GLUCAGON 1 MG VIAL IM PRN (17:43)
[2022-01-14] MEDS ORDERED: hydrALAZINE 20 MG/1 ML VIAL IV PRN (17:43)
[2022-01-14] MEDS ORDERED: guaiFENesin/DM ER 600-30 MG TABLET PO PRN (17:43)
[2022-01-14] MEDS ORDERED: ONDANSETRON 4 MG/2 ML VIAL IV PRN (17:43)
[2022-01-14] MEDS ORDERED: NITROGLYCERIN SL 0.4 MG TABLET SL PRN (17:47)
[2022-01-14] MEDS ORDERED: DEXTROSE 10% 250 ML BAG IV PRN (18:57)
[2022-01-14] MEDS: ENOXAPARIN 40 MG/0.4 ML SYRINGE SUBCUT SCH (19:37)
[2022-01-14 19:42] LABS: Bilirubin,Urine Negative (Negative); Blood, Urine Negative (Negative); Glucose,Urine (UA) Negative (Negative); Ketones,Urine Negative (Negative); Nitrite,Urine Negative (Negative); Protein,Urine Negative (Negative); Urine Appearance Clear (Clear); Urine Color Yellow (Yellow); Urine Specific Gravity 1.015 (1.001-1.035); Urine Urobilinogen 0.2 eU/dL (<2.0); Urine pH 6.5 (4.5-8.0)
[2022-01-14 19:51] LABS: Hyaline Casts,Urine 14 /LPF (0-3); Mucus,Urine Occasional /LPF (Occasional); RBC,Urine <1 /HPF (0-4); Squamous Epithelial Cell,Urine Occasional /HPF (0-10)
[2022-01-14] MEDS: DULoxetine 30 MG CAPSULE PO SCH (21:03)
[2022-01-14] MEDS: cilostazoL 50 MG TABLET PO SCH (21:04)
[2022-01-14] MEDS: ATORVASTATIN 80 MG TABLET PO SCH (21:04)
[2022-01-14] MEDS: METOPROLOL TARTRATE 25 MG TABLET PO SCH (21:04)
[2022-01-14] MEDS: RANOLAZINE 500 MG TABLET PO SCH (21:04)
[2022-01-15 04:53] LABS: Basophils # 0.1 10*3/uL (0.0-0.2); Basophils % 1.1 % (0.0-0.8); Eosinophils # 0.2 10*3/uL (0.0-0.87); Eosinophils % 2.2 % (0.00-10.9); Hematocrit 25.3 VOL% (35.7-47.0); Hemoglobin 8.1 GM/DL (12.0-16.0); Immature Granulocytes % 0.5 %; Immature Granulocytes Absolute 0.04 #; Lymphocytes # 2.2 10*3/uL (1.4-4.0); Lymphocytes % 27.8 % (21.3-54.2); Mean Corpuscular Volume 99.2 FL (87-102); Mean Platelet Volume 8.5 FL (9.6-12.0); Monocytes % 12.6 % (1.7-12.7); Neutrophils % 55.8 % (38.7-73.9); Platelet Count 278 T/CUMM (130-400); Red Blood Count 2.55 MC/CUMM (3.8-5.5); Red Cell Distribution Width 14.8 % (9.3-17.3); White Blood Count 7.9 T/CUMM (4-12)
[2022-01-15 05:24] LABS: Alanine Aminotransferase < 6 U/L (13-56); Albumin 2.5 G/DL (3.4-5.0); Alkaline Phosphatase 50 U/L (45-117); Aspartate Amino Transferase 11 U/L (0-37); Bilirubin,Total < 0.39 MG/DL (0.20-1.00); Blood Urea Nitrogen 14 MG/DL (7-18); Calcium 8.5 MG/DL (8.5-10.1); Carbon Dioxide 29 MMOL/L (21-32); Chloride 103 MMOL/L (98-107); Cholesterol 184 MG/DL (50-200); Estimated Glom Filtration Rate 60 ML/MIN; Glucose 90 MG/DL (74-106); HDL Cholesterol 38 MG/DL (40-60); Osmolality,Calculated 273.8 MOS/KG (273-304); Potassium 3.4 MMOL/L (3.5-5.1); Risk Ratio 4.84; Sodium 137 MMOL/L (136-145); Total Protein 6.4 G/DL (6.4-8.2); Triglycerides 114 MG/DL (2-150); VLDL Cholesterol 22.8 MG/DL
[2022-01-15] MEDS ORDERED: DILTIAZEM CD 180 MG CAPSULE PO SCH (09:00)
[2022-01-15] MEDS: RANOLAZINE 500 MG TABLET PO SCH (09:16)
[2022-01-15] MEDS: METOPROLOL TARTRATE 25 MG TABLET PO SCH ×2 (09:16→20:36)
[2022-01-15] MEDS: ISOSORBIDE MONONITRATE 30 MG TABLET PO SCH (09:16)
[2022-01-15] MEDS: ASPIRIN EC 81 MG TABLET PO SCH (09:17)
[2022-01-15] MEDS: PANTOPRAZOLE 40 MG TABLET PO SCH (09:17)
[2022-01-15] MEDS: cilostazoL 50 MG TABLET PO SCH (09:17)
[2022-01-15] MEDS: MULTIVITAMIN (CENTRUM) TABLET PO SCH (09:17)
[2022-01-15] MEDS: CYANOCOBALAMIN 500 MCG TABLET PO SCH (09:17)
[2022-01-15] MEDS: CLOPIDOGREL 75 MG TABLET PO SCH (09:17)
[2022-01-15] MEDS ORDERED: MAGNESIUM HYDROXIDE SUSP 30 ML UDCUP PO ONE (14:37)
[2022-01-15] MEDS: ENOXAPARIN 40 MG/0.4 ML SYRINGE SUBCUT SCH (18:15)
[2022-01-15] MEDS: DULoxetine 30 MG CAPSULE PO SCH (20:36)
[2022-01-15] MEDS: ATORVASTATIN 80 MG TABLET PO SCH (20:36)
[2022-01-16] MEDS: CLOPIDOGREL 75 MG TABLET PO SCH (10:01)
[2022-01-16] MEDS: MULTIVITAMIN (CENTRUM) TABLET PO SCH (10:01)
[2022-01-16] MEDS: ASPIRIN EC 81 MG TABLET PO SCH (10:01)
[2022-01-16] MEDS: ISOSORBIDE MONONITRATE 30 MG TABLET PO SCH (10:02)
[2022-01-16] MEDS: CYANOCOBALAMIN 500 MCG TABLET PO SCH (10:02)
[2022-01-16] MEDS: PANTOPRAZOLE 40 MG TABLET PO SCH (10:02)
[2022-01-16] MEDS: DILTIAZEM CD 120 MG CAPSULE PO SCH (10:02)
[2022-01-16] MEDS: METOPROLOL TARTRATE 25 MG TABLET PO SCH ×2 (10:02→21:38)
[2022-01-16] MEDS: FUROSEMIDE 20 MG TABLET PO SCH (17:15)
[2022-01-16] MEDS: ENOXAPARIN 40 MG/0.4 ML SYRINGE SUBCUT SCH (18:16)
[2022-01-16] MEDS: DULoxetine 30 MG CAPSULE PO SCH (21:37)
[2022-01-16] MEDS: ATORVASTATIN 80 MG TABLET PO SCH (21:37)
[2022-01-17 04:51] LABS: Basophils # 0.1 10*3/uL (0.0-0.2); Basophils % 1.6 % (0.0-0.8); Eosinophils # 0.1 10*3/uL (0.0-0.87); Eosinophils % 1.8 % (0.00-10.9); Hematocrit 28.4 VOL% (35.7-47.0); Hemoglobin 9.2 GM/DL (12.0-16.0); Immature Granulocytes % 0.4 %; Immature Granulocytes Absolute 0.03 #; Lymphocytes # 2.2 10*3/uL (1.4-4.0); Lymphocytes % 28.1 % (21.3-54.2); Mean Corpuscular HGB Conc 32.4 GM/DL (32-36); Mean Corpuscular Volume 98.6 FL (87-102); Mean Platelet Volume 8.7 FL (9.6-12.0); Monocytes % 12.3 % (1.7-12.7); Neutrophils % 55.8 % (38.7-73.9); Platelet Count 283 T/CUMM (130-400); Red Blood Count 2.88 MC/CUMM (3.8-5.5); Red Cell Distribution Width 14.6 % (9.3-17.3); White Blood Count 7.7 T/CUMM (4-12)
[2022-01-17] MEDS ORDERED: amLODIPine 5 MG TABLET PO SCH (09:00)
[2022-01-17] MEDS: MULTIVITAMIN (CENTRUM) TABLET PO SCH (09:42)
[2022-01-17] MEDS: CLOPIDOGREL 75 MG TABLET PO SCH (09:42)
[2022-01-17] MEDS: ASPIRIN EC 81 MG TABLET PO SCH (09:42)
[2022-01-17] MEDS: PANTOPRAZOLE 40 MG TABLET PO SCH (09:43)
[2022-01-17] MEDS: ISOSORBIDE MONONITRATE 30 MG TABLET PO SCH (09:43)
[2022-01-17] MEDS: METOPROLOL TARTRATE 25 MG TABLET PO SCH ×2 (09:43→21:31)
[2022-01-17] MEDS: DILTIAZEM CD 120 MG CAPSULE PO SCH (09:43)
[2022-01-17] MEDS: CYANOCOBALAMIN 500 MCG TABLET PO SCH (09:44)
[2022-01-17] MEDS ORDERED: MECLIZINE 12.5 MG TABLET PO PRN (10:49)
[2022-01-17] MEDS: ENOXAPARIN 40 MG/0.4 ML SYRINGE SUBCUT SCH (17:44)
[2022-01-17] MEDS: FUROSEMIDE 20 MG TABLET PO SCH (17:44)
[2022-01-17] MEDS: DULoxetine 30 MG CAPSULE PO SCH (21:31)
[2022-01-17] MEDS: ATORVASTATIN 80 MG TABLET PO SCH (21:31)
[2022-01-18] MEDS: DILTIAZEM CD 120 MG CAPSULE PO SCH (10:16)
[2022-01-18] MEDS: MULTIVITAMIN (CENTRUM) TABLET PO SCH (10:17)
[2022-01-18] MEDS: LOPERAMIDE 2 MG CAPSULE PO PRN (10:17)
[2022-01-18] MEDS: CYANOCOBALAMIN 500 MCG TABLET PO SCH (10:17)
[2022-01-18] MEDS: ASPIRIN EC 81 MG TABLET PO SCH (10:17)
[2022-01-18] MEDS: ISOSORBIDE MONONITRATE 30 MG TABLET PO SCH (10:17)
[2022-01-18] MEDS: PANTOPRAZOLE 40 MG TABLET PO SCH (10:17)
[2022-01-18] MEDS: SODIUM CHLORIDE 0.9% 1,000 ML IV SCH (10:17)
[2022-01-18] MEDS: METOPROLOL TARTRATE 25 MG TABLET PO SCH ×2 (10:17→21:20)
[2022-01-18] MEDS: CLOPIDOGREL 75 MG TABLET PO SCH (10:17)
[2022-01-18 12:01] LABS: Basophils # 0.1 10*3/uL (0.0-0.2); Basophils % 1.1 % (0.0-0.8); Eosinophils # 0.1 10*3/uL (0.0-0.87); Hemoglobin 10.3 GM/DL (12.0-16.0); Immature Granulocytes % 0.5 %; Immature Granulocytes Absolute 0.05 #; Lymphocytes # 2.8 10*3/uL (1.4-4.0); Lymphocytes % 27.7 % (21.3-54.2); Mean Corpuscular HGB Conc 33.2 GM/DL (32-36); Mean Corpuscular Volume 99.4 FL (87-102); Mean Platelet Volume 8.7 FL (9.6-12.0); Monocytes # 1.1 10*3/uL (0.11-0.8); Monocytes % 11.1 % (1.7-12.7); Neutrophils % 58.6 % (38.7-73.9); Platelet Count 312 T/CUMM (130-400); Red Blood Count 3.12 MC/CUMM (3.8-5.5); Red Cell Distribution Width 14.6 % (9.3-17.3)
[2022-01-18 12:20] LABS: Calcium 8.8 MG/DL (8.5-10.1); Osmolality,Calculated 267.4 MOS/KG (273-304); Potassium 3.9 MMOL/L (3.5-5.1)
[2022-01-18] MEDS: FUROSEMIDE 20 MG TABLET PO SCH (17:16)
[2022-01-18] MEDS: ENOXAPARIN 40 MG/0.4 ML SYRINGE SUBCUT SCH (17:16)
[2022-01-18] MEDS: DULoxetine 30 MG CAPSULE PO SCH (21:20)
[2022-01-18] MEDS: ATORVASTATIN 80 MG TABLET PO SCH (21:20)
[2022-01-19 04:06] LABS: Basophils # 0.1 10*3/uL (0.0-0.2); Basophils % 0.9 % (0.0-0.8); Eosinophils # 0.2 10*3/uL (0.0-0.87); Eosinophils % 2.2 % (0.00-10.9); Hematocrit 27.3 VOL% (35.7-47.0); Hemoglobin 8.9 GM/DL (12.0-16.0); Immature Granulocytes % 0.5 %; Immature Granulocytes Absolute 0.04 #; Lymphocytes # 2.2 10*3/uL (1.4-4.0); Lymphocytes % 25.2 % (21.3-54.2); Mean Corpuscular HGB Conc 32.6 GM/DL (32-36); Mean Corpuscular Volume 99.3 FL (87-102); Monocytes # 1.2 10*3/uL (0.11-0.8); Monocytes % 13.7 % (1.7-12.7); Neutrophils % 57.5 % (38.7-73.9); Platelet Count 274 T/CUMM (130-400); Red Blood Count 2.75 MC/CUMM (3.8-5.5); Red Cell Distribution Width 14.6 % (9.3-17.3); White Blood Count 8.8 T/CUMM (4-12)
[2022-01-19 04:28] LABS: Calcium 8.4 MG/DL (8.5-10.1); Osmolality,Calculated 267.2 MOS/KG (273-304); Potassium 3.8 MMOL/L (3.5-5.1)
[2022-01-19] MEDS: MULTIVITAMIN (CENTRUM) TABLET PO SCH (09:28)
[2022-01-19] MEDS: PANTOPRAZOLE 40 MG TABLET PO SCH (09:28)
[2022-01-19] MEDS: METOPROLOL TARTRATE 25 MG TABLET PO SCH (09:29)
[2022-01-19] MEDS: CYANOCOBALAMIN 500 MCG TABLET PO SCH (09:29)
[2022-01-19] MEDS: ASPIRIN EC 81 MG TABLET PO SCH (09:29)
[2022-01-19] MEDS: CLOPIDOGREL 75 MG TABLET PO SCH (09:29)
[2022-01-19] MEDS: ISOSORBIDE MONONITRATE 30 MG TABLET PO SCH (09:29)
[2022-01-19] MEDS: DILTIAZEM CD 120 MG CAPSULE PO SCH (09:30)
[2022-01-19] MEDS: SODIUM CHLORIDE 0.9% 1,000 ML IV SCH (11:17)
[2022-01-19] MEDS: LOPERAMIDE 2 MG CAPSULE PO PRN (12:16)
[2022-01-19 14:08] VITALS: BP 145/69
== END 2022-01-19 13:41 | disposition swing bed (61) | DRG 303 ==
LOC: N.ED 14:34 → N.EDINP 17:43 → SUATTDRO 17:43 → N.TELEN 18:50
PROVIDERS: ADMIT Emergency Medicine; ATTEND Internal Medicine